=== PATIENT | female | born 1955 | race Caucasian/White ===

== ENCOUNTER → 2021-04-24 | Day surgery (SDC) | payer MEDICARE, OTHER ==
[~2021-04-24] VITALS: Ht 170.2 cm; Wt 86.2 kg
[~2021-04-24] MED LIST: ASPIRIN EC81 MG PO; COLLAGEN HYDROLY1 GM MC; HYDROCODON-ACE1 EAC6 PO; VITAMIN C100 MG PO; VITAMIN D375 MCG PO; ZINC30 M1 PO
== END | disposition home or self-care (01) ==
LOC: OR 08:44
DX: S82.841A Displaced bimalleolar fracture of right lower leg, initial encounter for closed fracture (principal); S93.431A Sprain of tibiofibular ligament of right ankle, initial encounter; W01.0XXA Fall on same level from slipping, tripping and stumbling without subsequent striking against object, initial encounter; Z20.822 Contact with and (suspected) exposure to COVID-19
CPT/HCPCS: 73610; 76000; 93005; C1713; J0171; J0690; J1100; J1170; J1885; J2250; J2405; J2704; J2795; J3010; J7120; U0002